=== PATIENT | female | born 1950 | race Caucasian/White ===

== ENCOUNTER 2022-11-09 09:01 | Outpatient (RCR) | payer MEDICARE, SELFPAY | END 2022-11-30 16:00 | disposition home or self-care (01) | LOC: HO.WCC 09:01 | PROVIDERS: PCP Internal Medicine Endocrinology, Diabetes & Metabolism; Visit Provider Physician Assistant | DX: S81.852A Open bite, left lower leg, initial encounter (principal); W55.01XA Bitten by cat, initial encounter; I87.2 Venous insufficiency (chronic) (peripheral); R60.0 Localized edema; N18.4 Chronic kidney disease, stage 4 (severe); Z87.891 Personal history of nicotine dependence | CPT/HCPCS: 11042; 99212 ==